=== PATIENT | male | born 1970 | race Caucasian/White ===

== ENCOUNTER 2016-10-08 05:46 | Outpatient (CLI) | payer OTHER ==
[~2016-10-08] VITALS: Ht 198.1 cm; Wt 79.8 kg
[2016-10-08] MEDS ORDERED: ONDA8TAB6 PO (13:54)
[2016-10-08] MEDS ORDERED: HYDR-3816 PO (13:54)
[2016-10-08] MEDS ORDERED: RT-ALBUINH IH (13:54)
[2016-10-08] MEDS ORDERED: ALLO300T2 PO (13:54)
[2016-10-08] MEDS ORDERED: INDO50CA PO (13:54)
== END 2016-10-08 13:56 ==
LOC: PREOP 05:46
PROVIDERS: ATTEND Surgery
DX: Z01.818 Encounter for other preprocedural examination (principal); R11.10 Vomiting, unspecified; R19.7 Diarrhea, unspecified

== ENCOUNTER 2016-10-10 12:07 | Day surgery (SDC) | payer OTHER ==
[~2016-10-10] VITALS: Ht 198.1 cm; Wt 79.8 kg
[~2016-10-10 12:07] MED LIST: ALLO300T2 PO; HYDR-3816 PO; INDO50CA PO; ONDA8TAB6 PO; RT-ALBUINH IH
[2016-10-10] MEDS ORDERED: LACTATED RINGERS 1,000 ML IV ONE (12:21)
[2016-10-10] MEDS ORDERED: LACTATED RINGERS 1,000 ML IV SCH (12:30)
[2016-10-10 12:42] VITALS: BP 168/103
[2016-10-10] MEDS ORDERED: proPOfol 200 MG/20 ML (DIPRIVAN) VIAL IV ONE ×2 (14:09→14:49)
[2016-10-10] MEDS ORDERED: MIDAZOLAM 2 MG/2 ML (VERSED) VIAL ONE (14:10)
--- NOTE | 2016-10-10 14:23 | Progress Note-Pre Operative ---
Pre-Operative Progress Note H&P Reviewed The H&P was reviewed, patient examined and no changes noted. Date H&P Reviewed: October 10, 2016 Time H&P Reviewed: 14:23 Pre-Operative Diagnosis: nausea vomiting weight loss ALISE GARCIA DO October 10, 2016 2:23 pm
--- NOTE | 2016-10-10 15:04 | Progress Note-Post Operative ---
Post-Operative Progess Note Surgeon (s)/Certified Physical Therapist Assistant (s) Surgeon ALISE GARCIA DO Certified Physical Therapist Assistant: na Pre-Operative Diagnosis nausea vomiting weight loss Post-Operative Diagnosis gastritis, hiatal hernia, reflux esophagitis Procedure & Operative Findings Date of Procedure 10/10/16 Procedure Performed/Findings egd c biopsies, colonoscopy Anesthesia Type per mda Estimated Blood Loss Estimated blood loss (mL): none Specimens/Packing Specimens Removed antrum, ge junction ALISE GARCIA DO October 10, 2016 3:04 pm
[2016-10-10] MEDS ORDERED: PANT40TA2 PO (15:05)
[2016-10-10] MEDS ORDERED: SUCR1TAB36 PO (15:05)
--- NOTE | 2016-10-10 15:06 | Discharge Inst-Simple/Standard ---
Discharge Inst-Standard Discharge Medications New, Converted or Re-Newed RX: Transmitted to Pharmacy Patient Instructions/Follow Up Plan of Care/Instructions/FU: Follow up with Dr. Holbrook in 2 weeks., Take medication as directed. Activity as Tolerated: Yes Discharge Diet: No Restrictions ULISES LOPEZ APRN October 10, 2016 15:06
[2016-10-10 15:25] VITALS: BP 149/76
[2016-10-10 15:45] VITALS: BP 151/81
[2016-10-10 15:50] VITALS: BP 151/81
--- NOTE | 2016-10-10 20:38 | OPERATIVE REPORT ---
DATE OF SERVICE: 10/10/2016 PREOPERATIVE DIAGNOSES: Nausea, vomiting and weight loss. PREOPERATIVE DIAGNOSES: Gastritis, hiatal hernia, reflux esophagitis, normal colon. PROCEDURES: EGD with biopsies, colonoscopy. ANESTHESIA: Per MDA. ESTIMATED BLOOD LOSS: None. COMPLICATIONS: None. SPECIMENS: Biopsies of antrum and GE junction. INDICATIONS: The patient is a 46-year-old male who has been having significant nausea, vomiting and weight loss. He has had approximately a 40-pound weight loss. He was referred for EGD and colonoscopy by Dr. Green in [place]. He understands the risks and benefits of procedure and wished to proceed with procedure. Consent was signed and in the chart. PROCEDURE: The patient was taken to the endoscopy suite, placed in left lateral recumbent position. Timeout was performed. Scope was inserted in the mouth, down the esophagus, stomach and into the duodenum without difficulty. There were no polyps, masses or ulcerations visualized within the duodenum. The scope was slowly retracted back into the stomach, which had erythematous changes throughout. The appearance of maybe some healing ulcers. Biopsy of the antrum was obtained. The scope was retroflexed, noting a small hiatal hernia. No other pathology noted. The scope was then returned to its normal position, slowly withdrawn to the distal esophagus. The GE junction had erythematous changes present. Biopsy was obtained. The scope was then slowly retracted until completely removed, noting no other pathology. Digital rectal exam was performed. There were no palpable polyps, masses or ulcerations. Scope was inserted in the rectum and advanced all the way to the cecum with minimal difficulty. Prep was adequate. Scope was then slowly retracted back. There were no polyps, masses or ulcerations in the cecum, ascending, transverse, descending and sigmoid colon or rectum. The scope was then retroflexed, noting no other pathology. Scope was returned to its normal position, slowly withdrawn until completely removed. The patient tolerated the procedure well without any complications and taken to the recovery room in stable condition. RECOMMENDATIONS: The patient will be started on Protonix 40 mg daily for 2 weeks and then 1 time daily after that. Carafate 1 gram 4 times a day #120. The patient instructed to take medications as prescribed. He will need a repeat colonoscopy in 10 years unless family history of colon cancer, which would then be 5 years. If he has any problems prior to that, he should be re-evaluated at that time. If no improvement on this, will continue further workup of weight loss with primary care provider. Job ID: [id number] DocumentID: [id number] Dictated Date: 10/10/2016 15:51:42 Market Sales Manager Date: 10/10/2016 20:38:09 Dictated By: ALISE GARCIA DO
== END 2016-10-10 15:50 | disposition home or self-care (01) ==
LOC: ENDO 12:07
PROVIDERS: ATTEND Surgery
DX: K21.0 Gastro-esophageal reflux disease with esophagitis (principal); K44.9 Diaphragmatic hernia without obstruction or gangrene; K29.70 Gastritis, unspecified, without bleeding; R19.7 Diarrhea, unspecified; R63.4 Abnormal weight loss; I10 Essential (primary) hypertension; J45.909 Unspecified asthma, uncomplicated; Z87.891 Personal history of nicotine dependence; Z79.899 Other long term (current) drug therapy

== ENCOUNTER 2017-04-28 12:48 | Day surgery (SDC) | payer OTHER ==
[~2017-04-28] VITALS: Ht 198.1 cm; Wt 84.4 kg
[~2017-04-28 12:48] MED LIST changes: +PANT40TA2 PO; +SUCR1TAB36 PO
[2017-04-28] MEDS ORDERED: LACTATED RINGERS 1,000 ML IV STA (12:54)
--- OUTSIDE RECORDS SUMMARY | 2017-04-28 12:55 | XMS REPORT | Continuity of Care Document ---
Author Author [facility] Address Unknown Phone Unavailable Allergies Medications Problems Procedures Results Encounters ACCT No. Visit Date/Time Discharge Status Pt. Type Provider Facility Loc./Unit Complaint [id number] 06/27/2016 12:21:51 06/27/2016 23: 59:59 [facility] Outpatient Baljti Yu [id number] 02/11/2016 16:12:23 02/11/2016 23: 59:59 [facility] Outpatient Renny Curtis [id number] 03/04/2015 15:06:27 03/04/2015 23: 59:59 [facility] Outpatient Baljit Yu [id number] 06/22/2014 14:46:16 06/22/2014 23: 59:59 [facility] Outpatient Baljit Yu [id number] 05/30/2014 10:40:58 05/30/2014 23: 59:59 [facility] Outpatient Laura Yip
[2017-04-28] MEDS ORDERED: HURRICAINE EXT TUBE (BENZOCAINE) XX PRN (13:00)
[2017-04-28 13:07] VITALS: BP 169/97
--- NOTE | 2017-04-28 13:17 | Progress Note-Pre Operative ---
Pre-Operative Progress Note H&P Reviewed The H&P was reviewed, patient examined and no changes noted. Date Seen by Provider: Apr 28, 2017 Time Seen by Provider: 13:16 Date H&P Reviewed: Apr 28, 2017 Time H&P Reviewed: 13:16 Pre-Operative Diagnosis: block's esophagus ALISE GARCIA DO Apr 28, 2017 1:16 pm
[2017-04-28] MEDS ORDERED: proPOfol 200 MG/20 ML (DIPRIVAN) VIAL IV ONE ×2 (14:11→14:26)
[2017-04-28] MEDS ORDERED: MIDAZOLAM 2 MG/2 ML (VERSED) VIAL ONE (14:11)
--- NOTE | 2017-04-28 14:42 | Progress Note-Post Operative ---
Post-Operative Progess Note Surgeon (s)/Photo Stylist (s) Surgeon ALISE GARCIA DO Photo Stylist: na Pre-Operative Diagnosis block's esophagus Post-Operative Diagnosis same, gastritis Procedure & Operative Findings Date of Procedure 04/28/17 Procedure Performed/Findings egd c biopsies Anesthesia Type per supervisor travel trailer Estimated Blood Loss Estimated blood loss (mL): scant Specimens/Packing Specimens Removed antrum, body, ge junction ALISE GARCIA DO Apr 28, 2017 2:42 pm
[2017-04-28] MEDS ORDERED: SUCR1TAB36 PO (14:43)
--- NOTE | 2017-04-28 14:52 | Discharge Inst-Simple/Standard ---
Discharge Inst-Standard Discharge Medications New, Converted or Re-Newed RX: Transmitted to Pharmacy Patient Instructions/Follow Up Plan of Care/Instructions/FU: 2 weeks Sheron Activity as Tolerated: Yes Discharge Diet: Regular Diet ALISE GARCIA DO Apr 28, 2017 14:52
[2017-04-28 14:55] VITALS: BP 154/85
[2017-04-28 15:25] VITALS: BP 147/89
[2017-04-28 15:30] VITALS: BP 147/89
--- NOTE | 2017-04-28 21:34 | OPERATIVE REPORT ---
DATE OF SERVICE: 04/28/2017 PREOPERATIVE DIAGNOSIS: Block's. POSTOPERATIVE DIAGNOSES: Block's and gastritis. PROCEDURE: EGD with biopsies. SURGEON: Fareed Holbrook D.O. ANESTHESIA: Per FOOD PORTER. ESTIMATED BLOOD LOSS: None. COMPLICATIONS: Scant. INDICATIONS: The patient is a 46-year-old male with history of Block's by biopsy. He understands risks and benefits of procedure and wished to proceed with procedure. Consent was signed and on the chart. DESCRIPTION OF PROCEDURE: The patient was taken to the endoscopy suite, placed in left lateral recumbent position. Timeout was performed. Scope was inserted in mouth, down into esophagus, stomach and into the duodenum without difficulty. There were no polyps, masses or ulcerations within the duodenum. The scope was slowly retracted back into the stomach, which had diffuse erythematous changes to it. There are no polyps, masses or ulcerations. Biopsies of the antrum and body were obtained. The scope was retroflexed noting no other pathology. Scope was returned to its normal position, slowly withdrawn to the distal esophagus. Slight erythematous changes at the GE junction with a small area of block's less than 1 cm. Quadrant biopsies were obtained. Scope was then slowly retracted back until completely removed, noting no other pathology. The patient tolerated procedure well without any complications and was taken to the recovery room in stable condition. RECOMMENDATIONS: Continue on Protonix and we will add Carafate 1 tablet 4 times a day for 1 month. I will see him in 2 weeks to discuss pathology and see how he is doing at that time. Job ID: [id number] DocumentID: [id number] Dictated Date: 04/28/2017 14:50:01 Remote Advisor Date: 04/28/2017 21:33:59 Dictated By: DO KASEY PHOENIX
== END 2017-04-28 15:30 | disposition home or self-care (01) ==
LOC: ENDO 12:48
PROVIDERS: ATTEND Surgery
DX: K29.70 Gastritis, unspecified, without bleeding (principal); I10 Essential (primary) hypertension; J45.909 Unspecified asthma, uncomplicated; Z79.899 Other long term (current) drug therapy; Z87.891 Personal history of nicotine dependence